=== PATIENT | male | born 1955 | race Caucasian/White ===

== ENCOUNTER → 2024-11-16 08:00 | Outpatient (CLI) | payer OTHER | END | disposition home or self-care (01) | LOC: LAB 08:00 | PROVIDERS: ATTEND Urology | DX: R97.20 Elevated prostate specific antigen [PSA] (principal) ==

== ENCOUNTER 2025-01-07 07:12 | Outpatient (CLI) | payer OTHER | END 2025-01-07 07:15 | disposition home or self-care (01) | LOC: SONOGRAMA 07:12 | PROVIDERS: ATTEND Urology | DX: C61 Malignant neoplasm of prostate (principal); N40.1 Benign prostatic hyperplasia with lower urinary tract symptoms; R97.20 Elevated prostate specific antigen [PSA] ==